=== PATIENT | female | born 1960 | race Caucasian/White ===

== ENCOUNTER 2022-03-16 14:10 | Outpatient (CLI) | payer OTHER | END 2022-03-16 14:11 | disposition home or self-care (01) | LOC: BICRAD 14:10 | PROVIDERS: ATTEND Nurse Practitioner Family | DX: M47.816 Spondylosis without myelopathy or radiculopathy, lumbar region (principal) | CPT/HCPCS: 72110 ==

== ENCOUNTER 2022-09-08 18:08 | Inpatient (IN) | payer OTHER ==
[~2022-09-08 18:08] MED LIST: Iopamidol-370 76% 500 ML 1 ML ONE
[2022-09-08 18:44] LABS: #Eosinphils 0.2 thou/uL (0.0-0.7); #Lymphocytes 2.4 thou/uL (1.20-3.40); #Neutrophils 4.3 thou/uL (1.40-6.50); %Basophils 0.3 % (0.0-1.0); %Lymphocytes 30.7 % (21.0-51.0); %Monocytes 13.1 % (0.0-10.0); %Neutrophils 53.9 % (42.0-75.0); Hemoglobin 6.7 g/dL (12.0-16.0); Mean Corpuscular HGB CONC 32.3 g/dL (32.0-36.0); Mean Corpuscular Hemoglobin 25.6 pg (27.0-31.0); Mean Corpuscular Volume 79.1 fl (78.0-98.0); Platelet Count 280 10x3/uL (130-400); RBC Distribution Width 15.6 % (11.5-14.5); Red Blood Cell (RBC) Count 2.62 mill/uL (4.20-5.40)
[2022-09-08 19:05] LABS: ALT (SGPT) 9 U/L (8-55); AST (SGOT) 15 U/L (5-34); Albumin 3.9 g/dL (3.4-4.8); Alkaline Phosphatase 86 U/L (40-110); Anion Gap 13 mmol/L (10-20); BUN (Urea Nitrogen) 26 mg/dL (9.8-20.1); Bilirubin, Total 0.3 mg/dL (0.2-1.2); Calc. Creatinine Clearance 0 mL/min (70-130); Calcium 9.2 mg/dL (7.8-10.44); Carbon Dioxide 22 mmol/L (23-31); Chloride 109 mmol/L (98-107); Estimated GFR 60; Globulin 3.4 g/dL (2.4-3.5); Glucose 90 mg/dL (80-115); Lipase 35 U/L (8-78); Potassium 4.7 mmol/L (3.5-5.1); Protein, Total 7.3 g/dL (5.8-8.1); Sodium 139 mmol/L (136-145)
[2022-09-08 20:51] LABS: Bilirubin Negative (Negative); Blood, Urine Negative (Negative); Clarity Clear (Clear); Glucose, Urine (Dipstick) Normal (Negative); Ketone, Urine Negative (Negative); Leukocyte Negative Leu/uL (Negative); Nitrite Negative (Negative); Protein, Urine (Dipstick) Negative (Neg-Trace); Specific Gravity, Urine 1.021 (1.002-1.036); Urobilinogen Normal mg/dL (Less than 2)
[2022-09-08 20:53] LABS: Pregnancy Test - Urine (BHCG) Negative (Negative); Pregu Control Background? CLEAR/WHITE (CLR/WHITE); Pregu Control Bar Appear? YES (CONTROL BAR); Specific Gravity 1.021 (1.002-1.036)
[2022-09-08] MEDS ORDERED: Morphine 4 MG/ML VIAL ONE (21:04)
[2022-09-08] MEDS ORDERED: Pantoprazole 40 MG VIAL ONE (21:04)
[2022-09-08] MEDS ORDERED: Ondansetron PF 4 MG/2 ML Vial IVP PRN (22:49)
[2022-09-09 00:32] VITALS: BMI 28.2
[2022-09-09] MEDS: Acetaminophen 325 MG TAB PO PRN ×4 (00:37→19:51)
[2022-09-09] MEDS: Sodium Chloride 0.9% 1,000 ML IV SCH ×2 (00:37→07:44)
[2022-09-09] MEDS: Ondansetron ODT 4 MG TAB PO PRN (00:39)
[2022-09-09 01:24] LABS: SARS-CoV-2 NAA Rapid Test Not Detected (NotDetected)
[2022-09-09 01:36] LABS: Hemoglobin 7.5 g/dL (12.0-16.0)
[2022-09-09 06:04] LABS: #Eosinphils 0.2 thou/uL (0.0-0.7); #Lymphocytes 2.6 thou/uL (1.20-3.40); #Monocytes 1.1 thou/uL (0.11-0.59); #Neutrophils 4.5 thou/uL (1.40-6.50); %Basophils 0.3 % (0.0-1.0); %Lymphocytes 31.1 % (21.0-51.0); %Monocytes 12.6 % (0.0-10.0); %Neutrophils 53.1 % (42.0-75.0); Hemoglobin 7.3 g/dL (12.0-16.0); Mean Corpuscular HGB CONC 31.4 g/dL (32.0-36.0); Mean Corpuscular Volume 76.5 fl (78.0-98.0); Mean Platelet Volume 8.8 fL (7.4-10.4); Platelet Count 227 10x3/uL (130-400); RBC Distribution Width 18.4 % (11.5-14.5); Red Blood Cell (RBC) Count 3.04 mill/uL (4.20-5.40); White Blood Cell (WBC) Count 8.4 10x3/uL (4.8-10.8)
[2022-09-09 06:21] LABS: Anion Gap 12 mmol/L (10-20); BUN (Urea Nitrogen) 21 mg/dL (9.8-20.1); Calc. Creatinine Clearance 64 mL/min (70-130); Calcium 8.7 mg/dL (7.8-10.44); Carbon Dioxide 21 mmol/L (23-31); Chloride 109 mmol/L (98-107); Estimated GFR 63; Glucose 91 mg/dL (80-115); Magnesium 1.9 mg/dL (1.6-2.6); Potassium 4.1 mmol/L (3.5-5.1); Sodium 138 mmol/L (136-145)
[2022-09-09] MEDS: Pantoprazole 40 MG VIAL IVP SCH ×2 (07:44→19:50)
[2022-09-09] MEDS ORDERED: predniSONE 1 MG TAB PO SCH (08:00)
[2022-09-09] MEDS ORDERED: FLU VACC QS2022-23(6MOS UP)/PF 60 MCG/0.5 ML SYRINGE IM ONE (09:00)
[2022-09-09 11:16] LABS: Hemoglobin 7.3 g/dL (12.0-16.0)
[2022-09-09] MEDS ORDERED: Lidocaine 1% PF 5 ML VIAL ONE (14:17)
[2022-09-09] MEDS ORDERED: PROPOFOL 200 MG/20 ML VIAL ONE (14:17)
[2022-09-09] MEDS ORDERED: Promethazine HCl 25 MG/ML VIAL IM PRN (14:41)
[2022-09-09] MEDS ORDERED: Meperidine HCl/PF 25 MG/ML VIAL SLOW IVP PRN (14:41)
[2022-09-09] MEDS ORDERED: Promethazine HCl 25 MG/ML VIAL IVPB PRN (14:41)
[2022-09-09] MEDS ORDERED: Morphine Sulfate 2 MG/ML SYRINGE SLOW IVP PRN (14:41)
[2022-09-09] MEDS ORDERED: Ondansetron HCl/PF 4 MG/2 ML Vial IVP PRN (14:41)
[2022-09-09] MEDS ORDERED: HYDROmorphone 2 MG/ML VIAL SLOW IVP PRN (14:41)
[2022-09-09] MEDS ORDERED: Iron, Sodium Ferric Gluconate 250 MG in Sodium Chloride 0.9% 250 ML 250 ML IVPB SCH (16:12)
[2022-09-09 17:23] LABS: Hemoglobin 7.4 g/dL (12.0-16.0)
[2022-09-09] MEDS: Iron Sucrose Complex 200 MG in Sodium Chloride 0.9% 100 ML IVPB SCH (18:22)
[2022-09-09] MEDS: Rosuvastatin 20 MG TAB PO SCH (19:50)
[2022-09-10 01:27] LABS: Hemoglobin 7.2 g/dL (12.0-16.0)
[2022-09-10 01:39] LABS: Prothrombin Time 13.9 sec (12.0-14.7)
[2022-09-10] MEDS: Levothyroxine Sodium 88 MCG TAB PO SCH (05:32)
[2022-09-10 07:44] LABS: #Eosinphils 0.1 thou/uL (0.0-0.7); #Lymphocytes 2.1 thou/uL (1.20-3.40); #Neutrophils 4.3 thou/uL (1.40-6.50); %Basophils 0.4 % (0.0-1.0); %Lymphocytes 28.1 % (21.0-51.0); %Monocytes 13.3 % (0.0-10.0); %Neutrophils 57.1 % (42.0-75.0); Hemoglobin 6.6 g/dL (12.0-16.0); Mean Corpuscular HGB CONC 32.1 g/dL (32.0-36.0); Mean Corpuscular Hemoglobin 24.4 pg (27.0-31.0); Mean Platelet Volume 8.4 fL (7.4-10.4); Platelet Count 227 10x3/uL (130-400); RBC Distribution Width 18.2 % (11.5-14.5); Red Blood Cell (RBC) Count 2.72 mill/uL (4.20-5.40); White Blood Cell (WBC) Count 7.5 10x3/uL (4.8-10.8)
[2022-09-10 08:07] LABS: Anion Gap 10 mmol/L (10-20); BUN (Urea Nitrogen) 10 mg/dL (9.8-20.1); Calc. Creatinine Clearance 71 mL/min (70-130); Calcium 8.7 mg/dL (7.8-10.44); Carbon Dioxide 23 mmol/L (23-31); Chloride 110 mmol/L (98-107); Estimated GFR 71; Glucose 97 mg/dL (80-115); Potassium 3.7 mmol/L (3.5-5.1); Sodium 139 mmol/L (136-145)
[2022-09-10] MEDS: Pantoprazole 40 MG VIAL IVP SCH ×2 (08:59→19:24)
[2022-09-10] MEDS: predniSONE 1 MG TAB PO SCH (08:59)
[2022-09-10] MEDS: Ondansetron ODT 4 MG TAB PO PRN (08:59)
[2022-09-10] MEDS: Acetaminophen 325 MG TAB PO PRN ×3 (08:59→19:20)
[2022-09-10] MEDS: Sertraline 25 MG TAB PO SCH (09:47)
[2022-09-10] MEDS: Iron Sucrose Complex 200 MG in Sodium Chloride 0.9% 100 ML IVPB SCH (18:45)
[2022-09-10] MEDS: Rosuvastatin 20 MG TAB PO SCH (19:23)
[2022-09-11] MEDS: Levothyroxine Sodium 88 MCG TAB PO SCH (05:28)
[2022-09-11 07:38] LABS: #Eosinphils 0.3 thou/uL (0.0-0.7); #Lymphocytes 2.5 thou/uL (1.20-3.40); #Monocytes 0.9 thou/uL (0.11-0.59); #Neutrophils 3.1 thou/uL (1.40-6.50); %Basophils 0.3 % (0.0-1.0); %Eosinophils 3.9 % (0.0-10.0); %Lymphocytes 36.5 % (21.0-51.0); %Monocytes 13.7 % (0.0-10.0); %Neutrophils 45.7 % (42.0-75.0); Hemoglobin 9.1 g/dL (12.0-16.0); Mean Corpuscular HGB CONC 31.9 g/dL (32.0-36.0); Mean Corpuscular Hemoglobin 25.7 pg (27.0-31.0); Mean Corpuscular Volume 80.5 fl (78.0-98.0); Mean Platelet Volume 8.3 fL (7.4-10.4); Platelet Count 233 10x3/uL (130-400); RBC Distribution Width 18.6 % (11.5-14.5); Red Blood Cell (RBC) Count 3.53 mill/uL (4.20-5.40); White Blood Cell (WBC) Count 6.8 10x3/uL (4.8-10.8)
[2022-09-11] MEDS: Acetaminophen 325 MG TAB PO PRN (07:40)
[2022-09-11 07:57] LABS: Anion Gap 11 mmol/L (10-20); BUN (Urea Nitrogen) 9 mg/dL (9.8-20.1); Calc. Creatinine Clearance 64 mL/min (70-130); Calcium 8.8 mg/dL (7.8-10.44); Carbon Dioxide 25 mmol/L (23-31); Chloride 109 mmol/L (98-107); Estimated GFR 63; Glucose 94 mg/dL (80-115); Potassium 4.1 mmol/L (3.5-5.1); Sodium 141 mmol/L (136-145)
[2022-09-11] MEDS: Pantoprazole 40 MG VIAL IVP SCH (09:02)
[2022-09-11] MEDS: predniSONE 1 MG TAB PO SCH (09:02)
[2022-09-11] MEDS: Sertraline 25 MG TAB PO SCH (09:09)
[2022-09-11 12:38] VITALS: BP 155/88; TEMP 98
== END 2022-09-11 12:39 | disposition home or self-care (01) | DRG 378 ==
LOC: ERS 18:08 → SURG A 21:21 → OBSVTOIN 09-10 12:54
PROVIDERS: ADMIT Student in an Organized Health Care Education/Training Program; ATTEND Internal Medicine
PROC: 0DJ08ZZ Inspection of Upper Intestinal Tract, Via Natural or Artificial Opening Endoscopic (ICD-10-PCS; principal; 2022-09-10)
DX: K25.4 Chronic or unspecified gastric ulcer with hemorrhage (principal); D62 Acute posthemorrhagic anemia; I50.22 Chronic systolic (congestive) heart failure; I11.0 Hypertensive heart disease with heart failure; K21.9 Gastro-esophageal reflux disease without esophagitis; F32.A Depression, unspecified; M06.9 Rheumatoid arthritis, unspecified; E03.9 Hypothyroidism, unspecified; K44.9 Diaphragmatic hernia without obstruction or gangrene; Z79.52 Long term (current) use of systemic steroids; Z79.890 Hormone replacement therapy; Z79.899 Other long term (current) drug therapy
CPT/HCPCS: 36415; 36430; 74177; 80048; 80053; 81003; 81025; 83690; 83735; 85014; 85018; 85025; 85610; 86850; 86900; 86901; 94760; 96374; 96375; 96376; C9113; G0378; J1756; J2270; J2405; J2704; J3490; J7050; J7512; P9016; Q0162; Q9967; U0002